=== PATIENT | female | born 1980 | race Asian ===

== ENCOUNTER 2018-03-15 12:36 | Outpatient (CLI) | payer OTHER ==
--- NOTE | 2018-03-15 17:33 | Ultrasound Report ---
RIGHT BREAST ULTRASOUND: 03/15/2018 CLINICAL INDICATION: Pain, skin discoloration. TECHNIQUE: Real-time scanning was performed with b2b outside sales representative static images obtained. FINDINGS: Ultrasound of the right inner breast was performed. At the 3 o'clock position, at the site of the palpable abnormality, there is a 5.0 x 3.5 x 1.7 cm heterogeneous collection, with peripheral vascularity. The appearance is most compatible with an abscess. IMPRESSION: LIKELY ABSCESS IN THE MEDIAL RIGHT BREAST. RECOMMENDATION: Surgical consultation for ongoing management. BI-RADS category 3, probable benign findings. TD: 03/15/2018 15:37
== END 2018-03-15 12:37 | disposition home or self-care (01) ==
LOC: DI 12:36
PROVIDERS: ATTEND Physician Assistant
DX: N64.4 Mastodynia (principal); L03.90 Cellulitis, unspecified
CPT/HCPCS: 76642

== ENCOUNTER 2018-03-15 12:54 | Outpatient (CLI) | payer OTHER ==
--- NOTE | 2018-03-15 17:52 | Mammography Report ---
DIGITAL DIAGNOSTIC BILATERAL MAMMOGRAM: 03/15/2018 CLINICAL INDICATION: Right breast pain, erythema. TECHNIQUE: Bilateral CC and MLO views, bilateral laterally exaggerated CC views, right true lateral view. Markers were placed at the site of palpable abnormality identified by the patient in the medial right breast. This is the patient's baseline examination. FINDINGS: The breasts demonstrate heterogeneously dense fibroglandular parenchyma bilaterally. In the medial right breast, there is an approximately 5 cm lesion closely associated with the medial skin. No associated calcifications are seen. Please also refer to right breast ultrasound of the same day. IMPRESSION: PROBABLE BENIGN FINDINGS, WITH A LIKELY ABSCESS ACCOUNTING FOR THE PALPABLE AND MAMMOGRAPHIC ABNORMALITY ON ULTRASOUND. RECOMMENDATION: Surgical consultation for ongoing management. BI-RADS category 3, probable benign findings. STANDARD QUALIFYING STATEMENTS 1. This examination was reviewed with the aid of Computed-Aided Detection (CAD). 2. A negative or benign imaging report should not delay biopsy if clinically suspicious findings are present. Consider surgical consultation if warranted. More than 5% of cancers are not identified by imaging. 3. Dense breasts may obscure an underlying neoplasm. TD: 03/15/2018 15:56
== END 2018-03-15 12:55 | disposition home or self-care (01) ==
LOC: DI 12:54
PROVIDERS: ATTEND Physician Assistant
DX: N64.4 Mastodynia (principal); N64.59 Other signs and symptoms in breast; L03.90 Cellulitis, unspecified
CPT/HCPCS: 76642; 77066

== ENCOUNTER 2018-03-16 15:00 | Outpatient (CLI) | payer OTHER | END 2018-03-16 15:01 | disposition home or self-care (01) | LOC: LAB.R 15:00 | PROVIDERS: ATTEND Surgery | DX: N61.1 Abscess of the breast and nipple (principal) | CPT/HCPCS: 87070; 87075; 87205 ==

== ENCOUNTER 2018-03-19 12:26 | Outpatient (CLI) | payer OTHER ==
[2018-03-19] MEDS ORDERED: BUFFERED LIDOCAINE 10 ML SYRINGE IU ONE (14:26)
--- NOTE | 2018-03-19 17:29 | Ultrasound Report ---
RIGHT BREAST ULTRASOUND AND ASPIRATION: 03/19/2018 CLINICAL INDICATION: Minimal fluid obtained on office aspiration of right medial breast abscess. TECHNIQUE: Real-time scanning was performed with herbicide service sales representative static images obtained. FINDINGS: Informed consent was obtained. Pre-aspiration, the residual cavity in the medial right breast measures 4.3 x 3.4 x 1.2 cm (5.0 x 3.5 x 1.7 cm on 03/15/2018). A suitable site in the patient's medial breast was selected with ultrasound. The skin was prepped and draped in the usual sterile fashion. The skin and soft tissues were anesthetized with buffered lidocaine. Initially, a 21-gauge spinal needle was inserted into the collection with minimal fluid returned. Following this, an 18-gauge needle was inserted and approximately 6 mL of cloudy bloody fluid was removed. The patient tolerated the procedure well. No immediate complications. Residual collection, however, measures 3.7 x 3.4 x 0.9 cm. IMPRESSION: SUCCESSFUL ASPIRATION WITH REMOVAL OF 6 ML OF CLOUDY BLOODY FLUID. FOLLOWING ASPIRATION, A RESIDUAL 3.7 X 3.4 X 0.9 CM COLLECTION DOES REMAIN WITH SIGNIFICANT INTERNAL DEBRIS. TD: 03/19/2018 14:29
== END 2018-03-19 12:27 | disposition home or self-care (01) ==
LOC: DI 12:26
PROVIDERS: ATTEND Surgery
DX: N61.1 Abscess of the breast and nipple (principal)
CPT/HCPCS: 19000

== ENCOUNTER 2020-10-03 08:00 | Outpatient (CLI) | payer OTHER ==
[2020-10-03 13:01] LABS: BASOPHILS # (AUTO) 0.1 10^3/uL (0.0-0.1); BASOPHILS % (AUTO) 0.7 %; EOSINOPHILS # (AUTO) 0.3 10^3/uL (0.0-0.7); EOSINOPHILS % (AUTO) 3.5 %; HGB - HEMOGLOBIN 14.6 g/dL (12.0-16.0); LYMPHOCYTES # (AUTO) 2.2 10^3/uL (1.5-3.5); LYMPHOCYTES % (AUTO) 26.9 %; MEAN CORPUSCULAR HEMOGLOBIN 29.1 pg (27.0-31.0); MEAN CORPUSCULAR VOLUME 85.6 fL (81.0-99.0); MEAN PLATELET VOLUME 8.6 fL (7.9-10.8); MONOCYTES # (AUTO) 0.5 10^3/uL (0.0-1.0); MONOCYTES % (AUTO) 6.6 %; NEUTROPHILS % (AUTO) 61.9 %; PLT - PLATELET COUNT 373 10^3/uL (130-450); RED BLOOD COUNT 5.01 10^6/uL (4.20-5.40); RED CELL DISTRIBUTION WIDTH 11.7 % (12.0-15.0); WHITE BLOOD COUNT 8.1 x10^3/uL (4.8-10.8)
[2020-10-03 13:38] LABS: ALBUMIN/GLOBULIN RATIO 1.4 (1.0-2.2); ALKALINE PHOSPHATASE 58 IU/L (42-121); ALT ALANINE AMINOTRANSFERASE 62 IU/L (10-60); AST ASPARTATE AMINOTRANSFERASE 35 IU/L (10-42); BILIRUBIN,TOTAL 0.5 mg/dL (0.2-1.0); BUN - BLOOD UREA NITROGEN 13 mg/dL (6-20); CALCIUM 10.2 mg/dL (8.5-10.3); CARBON DIOXIDE - CO2 24 mmol/L (21-32); CHLORIDE 104 mmol/L (101-111); CHOL/HDL RATIO 6.1 (<4.4); CHOLESTEROL 252 mg/dL; CREATININE 0.6 mg/dL (0.4-1.0); GLUCOSE 145 mg/dL (70-100); HDL CHOLESTEROL 41 mg/dL; LDL CHOLESTEROL,CALCULATED 133 mg/dL; LDL/HDL RATIO 3.2 (<4.4); SODIUM 138 mmol/L (135-145); TOTAL PROTEIN 8.5 g/dL (6.7-8.2); VLDL CHOLESTEROL 78 mg/dL
== END 2020-10-03 23:59 | disposition home or self-care (01) ==
LOC: LAB.WCP 08:00
PROVIDERS: ATTEND Physician Assistant
DX: I10 Essential (primary) hypertension (principal); E78.5 Hyperlipidemia, unspecified
CPT/HCPCS: 36415; 80053; 80061; 83721; 85025

== ENCOUNTER 2020-10-27 11:13 | Outpatient (CLI) | payer OTHER ==
--- NOTE | 2020-10-27 17:43 | Ultrasound Report ---
PROCEDURE: Abdomen Limited INDICATIONS: ELEVATED LFT'S TECHNIQUE: Real-time focused scanning was performed of the abdomen, with image documentation. COMPARISON: None available. FINDINGS: The liver demonstrates mildly prominent size. The liver demonstrates increased echogenicit y, which limits ultrasound sensitivity for detection of masses. Focal fatty sparing can be seen in ad jacent to the gallbladder. No gallstones or sludge can be seen. The gallbladder wall does not appear thickened. There is no spec ific pericholecystic fluid. The sonographic Melvin's sign is negative. No biliary ductal dilatation is seen. The common bile duct measures 4 mm. The visualized pancreas is within normal limits. The visualized right kidney is unremarkable. The IVC is patent. IMPRESSION: Increased liver echogenicity is seen. This is nonspecific, yet it is most commonly attri buted to fatty infiltration. The gallbladder demonstrates a normal sonographic appearance. No biliary dilatation is seen. Reviewed by: Adin Gallegos MD on 10/27/2020 4:42 PM [place] Approved by: Adin Gallegos MD on 10/27/2020 4:42 PM [facility] Station ID: [id number]
== END 2020-10-27 11:14 | disposition home or self-care (01) ==
LOC: DI 11:13
PROVIDERS: ATTEND Physician Assistant
DX: R74.8 Abnormal levels of other serum enzymes (principal); R79.89 Other specified abnormal findings of blood chemistry

== ENCOUNTER 2020-10-29 08:00 | Outpatient (CLI) | payer OTHER ==
[2020-10-30 13:26] LABS: HEPATITIS B SURFACE ANTIGEN NON-REACTIVE (NON-REACTIVE); HEPATITIS C ANTIBODY NON-REACTIVE (NON-REACTIVE)
== END 2020-10-29 23:59 | disposition home or self-care (01) ==
LOC: LAB.WCP 08:00
PROVIDERS: ATTEND Physician Assistant
DX: R79.89 Other specified abnormal findings of blood chemistry (principal)
CPT/HCPCS: 36415; 86803; 87340

== ENCOUNTER 2022-09-24 07:47 | Outpatient (CLI) | payer OTHER ==
--- NOTE | 2022-09-29 14:37 | Ultrasound Report ---
LIMITED ULTRASOUND OF RIGHT BREAST: 09/24/2022 CLINICAL: Patient returns today to evaluate an asymmetry in the right breast. Comparison is made to exams dated: 09/24/2022 mammogram - [facility], 08/08/2022 ma mmogram - [facility] [employer], 03/19/2018 aspiration, 03/15/2018 ultrasound, and 03/15/2018 mammogram - [facility]. Real-time ultrasound of the right breast retroareolar was performed on the areas of interest. Beebe s hood images of the real-time examination were reviewed. IMPRESSION: NEGATIVE There is no sonographic evidence of malignancy. There is no sonographic abnormality seen in the right breast to correspond with the asymmetry seen on ly on screening mammogram. A 1 year screening mammogram is recommended. This exam was interpreted at Station ID: [id number]. Electronically Signed By: Ciarra Torres M.D. lk/:09/24/2022 11:40:11 Ultrasound BI-RADS: 1 Negative BI-RADS CATEGORY: (1) - 1 RECOMMENDATION: (ANNUAL) - Recommend routine annual screening mammography. [id number] 1 year screening LATERALITY: (B)
--- NOTE | 2022-09-29 14:37 | Mammography Report ---
BILATERAL DIGITAL DIAGNOSTIC MAMMOGRAM 3D/2D WITH SPOT COMPRESSION: 09/24/2022 CLINICAL: Patient returns today to evaluate asymmetries in bilateral breasts. Comparison is made to exams dated: 03/19/2018 aspiration, 03/15/2018 mammogram - [facility], and 08/08/2022 mammogram - [facility] [employer]. Both breasts are heterogeneously dense, which may obscure small masses (category c / 51-75% glandular tissue). The asymmetry in the right breast anterior depth central to the nipple seen on the craniocaudal view only is not seen in additional views. The asymmetry in the left breast posterior depth central to the nipple seen on the craniocaudal view only is not seen in additional views. No other significant masses or calcifications are seen in either breast. IMPRESSION: INCOMPLETE: NEEDS ADDITIONAL IMAGING EVALUATION The asymmetry in the right breast on screening mammogram is indeterminate. The asymmetry in the left breast on screening mammogram is indeterminate. A targeted ultrasound of the bilateral breasts is recommended and will be performed immediately follo wing this exam Based on the Tyrer Cuzick model (a risk assessment model) the patients lifetime risk is 10.7% and he r 10 year risk is 1.4%. According to the ACR, ACS, and NCCN guidelines, an annual breast MRI exam pat ng with mammogram is recommended if the patients lifetime risk is 20% or greater. This exam was interpreted at Station ID: [id number]. NOTE: For mammograms, a report in lay terms will be sent to the patient. Approximately 15% of breast malignancies will not be visualized mammographically. In the management of a palpable breast mass, a negative mammogram must not discourage biopsy of a clinically suspicious lesion. Electronically Signed By: Ciarra Torres M.D. lk/:09/24/2022 11:39:08 ACR BI-RADS Category 0: Incomplete 3340F PARENCHYMAL PATTERN: (D) - The breast(s) demonstrate(s) heterogeneously dense fibroglandular parjennay troy. BI-RADS CATEGORY: (0) - 0 Ultrasound [id number] Immediate follow-up LATERALITY: (B)
--- NOTE | 2022-09-29 14:37 | Ultrasound Report ---
LIMITED ULTRASOUND OF LEFT BREAST: 09/24/2022 CLINICAL: Patient returns today to evaluate an asymmetry in the left breast. Comparison is made to exams dated: 09/24/2022 mammogram - [facility], 08/08/2022 ma mmogram - [facility] ([place], [place]) [employer], 03/19/2018 aspiration, 03/15/2018 ultrasound, and 03/15/2018 mammogram - [facility]. Real-time ultrasound of the left breast retroareolar was performed on the areas of interest. Beebe s hood images of the real-time examination were reviewed. IMPRESSION: INCOMPLETE: NEEDS ADDITIONAL IMAGING EVALUATION There is no sonographic abnormality seen in the left breast to correspond with the asymmetry seen onl y on screening mammogram. Return to annual mammogram screening schedule is recommended. This exam was interpreted at Station ID: [id number]. Electronically Signed By: Ciarra Torres M.D. lk/:09/24/2022 11:41:10 Ultrasound BI-RADS: 0 Indeterminate BI-RADS CATEGORY: (0) - 0 RECOMMENDATION: (ANNUAL) - Recommend routine annual screening mammography. [id number] return to screening LATERALITY: (B)
== END 2022-09-24 07:48 | disposition home or self-care (01) ==
LOC: DI 07:47
PROVIDERS: ATTEND Nurse Practitioner
DX: R92.8 Other abnormal and inconclusive findings on diagnostic imaging of breast (principal)

== ENCOUNTER 2024-01-11 13:10 | Outpatient (CLI) | payer OTHER ==
[2024-01-11 13:22] LABS: BASOPHILS % (AUTO) 0.6 %; EOSINOPHILS # (AUTO) 0.2 10^3/uL (0.0-0.7); HCT - HEMATOCRIT 43.1 % (37.0-47.0); HGB - HEMOGLOBIN 14.5 g/dL (12.0-16.0); LYMPHOCYTES # (AUTO) 2.3 10^3/uL (1.5-3.5); LYMPHOCYTES % (AUTO) 31.9 %; MEAN CORPUSCULAR HEMOGLOBIN 28.3 pg (27.0-31.0); MEAN CORPUSCULAR HGB CONC 33.6 g/dL (32.0-36.0); MEAN CORPUSCULAR VOLUME 84.2 fL (81.0-99.0); MEAN PLATELET VOLUME 8.4 fL (7.9-10.8); MONOCYTES # (AUTO) 0.4 10^3/uL (0.0-1.0); MONOCYTES % (AUTO) 6.1 %; NEUTROPHILS # (AUTO) 4.1 10^3/uL (1.5-6.6); NEUTROPHILS % (AUTO) 58.1 %; PLT - PLATELET COUNT 271 10^3/uL (130-450); RED BLOOD COUNT 5.12 10^6/uL (4.20-5.40); RED CELL DISTRIBUTION WIDTH 11.9 % (12.0-15.0); WHITE BLOOD COUNT 7.1 x10^3/uL (4.8-10.8)
[2024-01-11 13:39] LABS: ALBUMIN 4.7 g/dL (3.2-5.5); ALBUMIN/GLOBULIN RATIO 1.6 (1.0-2.2); ALKALINE PHOSPHATASE 57 IU/L (42-121); ALT ALANINE AMINOTRANSFERASE 33 IU/L (10-60); AST ASPARTATE AMINOTRANSFERASE 21 IU/L (10-42); BILIRUBIN,TOTAL 0.6 mg/dL (0.2-1.0); BUN - BLOOD UREA NITROGEN 8 mg/dL (6-20); CALCIUM 9.8 mg/dL (8.5-10.3); CARBON DIOXIDE - CO2 28 mmol/L (21-32); CHLORIDE 98 mmol/L (101-111); CHOL/HDL RATIO 5.9 (<4.4); CHOLESTEROL 224 mg/dL; CREATININE 0.6 mg/dL (0.6-1.3); GFR - MDRD 110 (>89); GLUCOSE 199 mg/dL (74-104); HDL CHOLESTEROL 38 mg/dL; LDL CHOLESTEROL,CALCULATED 109 mg/dL; LDL/HDL RATIO 2.9 (<4.4); POTASSIUM 3.7 mmol/L (3.5-4.5); SODIUM 132 mmol/L (135-145); TOTAL PROTEIN 7.7 g/dL (6.4-8.9); TRIGLYCERIDES 386 mg/dL (48-352); VLDL CHOLESTEROL 77 mg/dL
[2024-01-11 15:30] LABS: ESTIMATED AVERAGE GLUCOSE 223 mg/dL (70-100); HEMOGLOBIN A1c% 9.4 % (4.27-6.07)
== END 2024-01-11 13:11 | disposition home or self-care (01) ==
LOC: LAB 13:10
PROVIDERS: ATTEND Nurse Practitioner
DX: I10 Essential (primary) hypertension (principal); R53.83 Other fatigue; R79.89 Other specified abnormal findings of blood chemistry; E78.5 Hyperlipidemia, unspecified; E66.9 Obesity, unspecified
CPT/HCPCS: 36415; 80053; 80061; 83036; 83721; 85025

== ENCOUNTER 2024-02-10 08:24 | Outpatient (CLI) | payer OTHER ==
--- NOTE | 2024-02-11 09:41 | Mammography Report ---
BILATERAL DIGITAL SCREENING MAMMOGRAM 3D/2D: 02/10/2024 CLINICAL: Routine screening. Comparison is made to exams dated: 09/24/2022 mammogram - [facility], 08/08/2022 ma mmogram - [facility], and 03/15/2018 mammogram - [facility]. Both breasts are heterogeneously dense, which may obscure small masses (category c / 51-75% glandular tissue). No significant masses, calcifications, or other findings are seen in either breast. There has been no significant interval change. IMPRESSION: NEGATIVE There is no mammographic evidence of malignancy. A 1 year screening mammogram is recommended. Based on the Tyrer Cuzick model (a risk assessment model) the patient's lifetime risk is 11.0% and he r 10 year risk is 1.6%. According to the ACR, ACS, and NCCN guidelines, an annual breast MRI exam pat ng with mammogram is recommended if the patient's lifetime risk is 20% or greater. This exam was interpreted at Station ID: [id number]. NOTE: For mammograms, a report in lay terms will be sent to the patient. Approximately 15% of breast malignancies will not be visualized mammographically. In the management of a palpable breast mass, a negative mammogram must not discourage biopsy of a clinically suspicious lesion. Electronically Signed By: Ciarra pires/inessa:02/10/2024 13:11:19 letter sent: No_Letter ACR BI-RADS Category 1: Negative 3341F PARENCHYMAL PATTERN: (D) - The breast(s) demonstrate(s) heterogeneously dense fibroglandular jc simmons. BI-RADS CATEGORY: (1) - 1 RECOMMENDATION: (ANNUAL) - Recommend routine annual screening mammography. [id number] 1 year screening LATERALITY: (B)
== END 2024-02-10 08:25 | disposition home or self-care (01) ==
LOC: DI 08:24
PROVIDERS: ATTEND Nurse Practitioner
DX: Z12.31 Encounter for screening mammogram for malignant neoplasm of breast (principal); R92.333 Mammographic heterogeneous density, bilateral breasts

== ENCOUNTER 2024-04-10 12:11 | Outpatient (CLI) | payer OTHER | END 2024-04-10 12:12 | disposition home or self-care (01) | LOC: LAB 12:11 | PROVIDERS: ATTEND Nurse Practitioner | DX: E11.9 Type 2 diabetes mellitus without complications (principal) ==

== ENCOUNTER 2024-05-31 10:11 | Outpatient (CLI) | payer OTHER ==
[2024-05-31 11:15] LABS: ESTIMATED AVERAGE GLUCOSE 157 mg/dL (70-100); HEMOGLOBIN A1c% 7.1 % (4.27-6.07)
== END 2024-05-31 10:12 | disposition home or self-care (01) ==
LOC: LAB 10:11
PROVIDERS: ATTEND Nurse Practitioner
DX: E11.9 Type 2 diabetes mellitus without complications (principal)
CPT/HCPCS: 36415; 83036